=== PATIENT | male | born 1995 | race Two or more races ===

== ENCOUNTER 2020-01-11 21:28 | Emergency (ER) | payer OTHER ==
[~2020-01-11] VITALS: Ht 182.9 cm; Wt 88.5 kg
[2020-01-11 22:25] VITALS: BP 116/69
== END 2020-01-12 00:41 | disposition left against medical advice (07) ==
LOC: ER 21:28
DX: T14.8XXA Other injury of unspecified body region, initial encounter (principal); Z53.21 Procedure and treatment not carried out due to patient leaving prior to being seen by health care provider

== ENCOUNTER 2024-11-20 09:07 | Emergency (ER) | payer OTHER ==
[~2024-11-20] VITALS: Ht 180.3 cm; Wt 93.9 kg
--- NOTE | 2024-11-20 12:30 | ED.PDOC ---
Back pain HPI HPI Comments 29-year-old male presents to the ER with prior medical history of chronic back pain caused from a basketball injury 16 years ago and with a chief complaint of the back pain. Patient ports on having neck cramps, with lower back pain last night, the patient wound work when the occurrence did happen. Patient states that the pain originally started on the back but one night when he was sleeping the pain went up to his neck. 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 Patient does state he has numbness on the right scapula. Denies chills, fever, N/V/D, SOB, CP. No other associated symptoms, modifiers, recent injuries or sick contacts present at this time. Chief Complaint: Back Pain Time Seen by MD: 12:20 Reviewed Notes: Nurses Notes, Medications, Allergies Allergies: Coded Allergies: NO KNOWN ALLERGIES (Unverified , 01/11/20) Information Source: Patient Mode of Arrival: Ambulatory Timing: Came on: Gradually Duration: Since onset Location of Back pain: (B) Cervical, (B) Lumbar Severity: Moderate Prehospital treatment: None Quality: Aching Onset: Blunt Trauma (From a basketball incident 16 years ago plus his work(where he lifts heavy stuff)) History of: Chronic Back Pain Associated signs and symptoms: None Past Medical History Past Medical History (Other): Chronic back pain Surgical History: Denies all surgeries Family History Family History: Reviewed,noncontributory to illness, Unknown Social History Smoker: Non-Smoker Alcohol: Denies ETOH Use Drugs: Denies Drug Use Lives In: Home Constitutional: denies: chills, diaphoresis, fatigue, fever, malaise, sweats, weakness, others EENTM: denies: blurred vision, double vision, ear bleeding, ear discharge, ear drainage, ear pain, ear ringing, eye pain, eye redness, hearing loss, mouth pain, mouth swelling, nasal discharge, nose bleeding, nose congestion, nose pain, photophobia, tearing, throat pain, throat swelling, voice changes, others Respiratory: denies: cough, hemoptysis, orthopnea, SOB at rest, shortness of breath, SOB with excertion, stridor, wheezing, others Cardiovascular: denies: chest pain, dizzy spells, diaphoresis, Dyspnea on exertion, edema, irregular heart beat, left arm pain, lightheadedness, palpitations, PND, syncope, others Gastrointestinal: denies: abdomen distended, abdominal pain, blood streaked bowels, constipated, diarrhea, dysphagia, difficulty swallowing, hematemesis, melena, nausea, poor appetite, poor fluid intake, rectal bleeding, rectal pain, vomiting, others Genitourinary: denies: burning, dysuria, flank pain, frequency, hematuria, incontinence, penile discharge, penile sore, pain, testicle pain, testicle swelling, urgency, others Neurological: denies: dizziness, fainting, headache, left sided numbness, left sided weakness, numbness, paresthesia, pre-existing deficit, right sided numbness, right sided weakness, seizure, speech problems, tingling, tremors, weakness, others Musculoskeletal: reports: back pain, neck pain; denies: gout, joint pain, joint swelling, muscle pain, muscle stiffness, others Integumetry: denies: bruises, change in color, change in hair/nails, dryness, laceration, lesions, lumps, rash, wounds, others Allergic/Immunocompromised: denies: Difficulty Healing, Frequent Infections, Hives, Itching, others Hematologic/Lymphatic: denies: anemia, blood clots, easy bleeding, easy bruising, swollen glands, others Endocrine: denies: excessive hunger, excessive sweating, excessive thirst, excessive urination, flushing, intolerance to cold, intolerance to heat, unexplained weight gain, unexplained weight loss, others Psychiatric: denies: anxiety, bipolar disorder, depression, hopeless, panic disorder, schizophrenia, sleepless, suicidal, others All Other Systems: Reviewed and Negative Physical Exam General Appearance: Mild Distress, Normal HEENT: Normal ENT Inspection, PERRL/EOMI, Pharynx Normal, TMs Normal Neck: Limited Range of Motion, Normal, Normal Inspection, Tender Lateral Respiratory: Chest Non-Tender, Lungs Clear, No Accessory Muscle Use, No Respiratory Distress, Normal Breath Sounds Cardiovascular: No Edema, No JVD, No Murmur, No Gallop, Normal Peripheral Pulses, Regular Rate/Rhythm Breast Exam: Deferred Gastrointestinal: No Organomegaly, Non Tender, No Pulsatile Mass, Normal Bowel Sounds, Soft Genitalia: Deferred Pelvic: Deferred Rectal: Deferred Extremities: No calf tenderness, Normal capillary refill, Normal inspection, Normal range of motion, Non-tender, No pedal edema Musculoskeletal : Location: Bilateral Extremity Location: Back Apperance: Normal, Limited ROM, Tenderness: Moderate Neurologic: Alert, stock checkerer II-XII nml as Tested, No Motor Deficits, Normal Affect, Normal Mood, No Sensory Deficits Cerebellar Function: Normal Reflexes: Normal Skin: Dry, Normal Color, Warm Peripheral Pulses: 1+ carotid (R), 1+ carotid (L) Lymphatic: No Adenopathy Was a procedure done? Was a procedure done?: No Back Pain Differential Dx Differential Diagnosis: Musculoskeletal Pain X-Ray, Labs, Meds, VS Vital Signs Date Time Temp Pulse Resp B/P (MAP) Pulse Ox O2 Delivery O2 Flow Rate FiO2 11/20/24 11:33 98.0 63 16 107/59 (75) 97 98.0 11/20/24 11:33 63 16 97 Room Air 11/20/24 09:30 98.7 82 20 129/67 (87) 98 98.7 X-Ray, Labs, Meds, VS Comment Course in the emergency department eventful patient came in complaining of back pain from the neck down mostly on the neck side on the right side and back it is bilateral CT of the neck is normal patient had radiculopathy to the right shoulder arm The lumbar spine negative patient had an radiculopathy to the left leg Patient will be discharged home to follow up with his PCP Time of 1ST Reevaluation: 12:50 Reevaluation 1ST: Unchanged Patient Education/Counseling: Diagnosis, Treatment, Prognosis Family Education/Counseling: No Family Present Departure 1 Departure Time of Disposition: 13:10 Impression: Primary Impression: Lumbar radiculopathy Additional Impressions: Musculoskeletal pain Cervical radiculopathy at C5 Disposition: 01 HOME / SELF CARE / HOMELESS Condition: Fair Additional Instructions: Hot showers and follow up with your PCP e-Prescriptions Cyclobenzaprine Hcl (Cyclobenzaprine Hcl) 10 Mg Tab 10 MG PO TID for 10 Days, #30 TAB Prov: ELIDA VIZCAINO MD 11/20/24 Diclofenac Sodium (Diclofenac Sodium Dr) 50 Mg Tab 50 MG PO TID for 10 Days, #30 TAB Prov: ELIDA VIZCAINO MD 11/20/24 Discharged With: Self Critical Care Note Critical Care Time?: No Stability Stability form required: No Heart Score Heart Score: Heart Score Response (Comments) Value History N/A 0 EKG N/A 0 Age <45 0 Risk Factors No known risk factors 0 Troponin N/A 0 Total 0 I personally scribed for ELIDA VIZCAINO MD ([email or web address]) on 11/20/24 at 12:30. Electronically submitted by Mick Marquez ([email or web address]). ELIDA VIZCAINO MD November 20, 2024 12:30
--- NOTE | 2024-11-20 12:53 | DVH ---
CLINICAL HISTORY: Radiculopathy COMPARISON: None TECHNIQUE: Axial CT images of the cervical spine were obtained without IV contrast. Coronal and sagit evelina reformatted images were obtained. All CT scans at this medical facility are performed using dose modulation techniques as appropriate to a performed exam including the following: Automated exposure control was utilized; adjustment of the MA and/or KV according to patient size; and use of iterative reconstruction technique. CTDIvol = 17.94 mGy DLP = 428.53 mGy-cm FINDINGS: Bones: Straightening of the normal cervical lordosis. No significant spondylolisthesis. Vertebral bod y heights are maintained. Posterior elements are intact. No acute fracture. Paraspinal soft tissues: Prevertebral and paraspinal soft tissues are unremarkable. Other: No other significant findings. Cervical disc levels: C2-C3: No significant disc/facet abnormality. No significant spinal canal or neural foraminal stenosi s. C3-C4: No significant disc/facet abnormality. No significant spinal canal or neural foraminal stenosi s. C4-C5: No significant disc/facet abnormality. No significant spinal canal or neural foraminal stenosi s. C5-C6: No significant disc/facet abnormality. No significant spinal canal or neural foraminal stenosi s. C6-C7: No significant disc/facet abnormality. No significant spinal canal or neural foraminal stenosi s. C7-T1: No significant disc/facet abnormality. No significant spinal canal or neural foraminal stenosi s. IMPRESSION: 1. No evidence of acute fracture or spondylolisthesis. 2. Straightening of the normal cervical lordosis, may be positional or due to muscle spasm. 3. No significant spinal canal or neural foraminal stenosis visualized on CT. Correlate with clinical findings.
--- NOTE | 2024-11-20 12:59 | DVH ---
EXAM: CT LS SPINE WO CONTRAST HISTORY: Radiculopathy COMPARISON: None CTDIvol 19.93 mGy, DLP 659.81 mGy*cm. TECHNIQUE: Multiple axial CT images of the spine were obtained using bone algorithm. Axial and coron al reformatting was done. Bone and soft tissue windows were reviewed. FINDINGS: Alignment is normal. Vertebral body heights are maintained. No evidence of acute fracture. Intervertebral disc heights are maintained. No evidence of high-grade osseous spinal or neural foraminal stenosis. Paravertebral soft tissues are unremarkable. IMPRESSION: No evidence of acute abnormalities in the lumbar spine.
[2024-11-20] MEDS ORDERED: DICL50TA5 PO (13:15)
[2024-11-20] MEDS ORDERED: CYCL-839 PO (13:15)
[2024-11-20 14:33] VITALS: BP 113/66; PULSE 68; RESP 16; TEMP 98; O2SAT 98
== END 2024-11-20 14:40 | disposition home or self-care (01) ==
LOC: ER 09:07
DX: M54.16 Radiculopathy, lumbar region (principal); M54.12 Radiculopathy, cervical region; M79.10 Myalgia, unspecified site; G89.29 Other chronic pain
CPT/HCPCS: 72125; 72131

== ENCOUNTER 2025-03-14 15:10 | Emergency (ER) | payer OTHER ==
[~2025-03-14] VITALS: Ht 182.9 cm; Wt 89.9 kg
[~2025-03-14 15:10] MED LIST: CYCL-839 PO; DICL50TA5 PO
[2025-03-14 15:11] VITALS: BP 130/78; PULSE 88; RESP 18; TEMP 98.1; O2SAT 96
--- NOTE | 2025-03-14 15:48 | ED.PDOC ---
History of Present Illness HPI Comments 29-year-old male presents to the ER with a chief complaint of by lateral LE pain. Patient reports on skating and as he was doing tricks he misstepped and is now complaining of bilateral ankle pain that radiates up to the calf. Patient also wants to know why he has bruising on his left ankle for three weeks . Denies chills, fever, N/V/D, SOB, CP. No other associated symptoms, modifiers, recent injuries or sick contacts present at this time. Chief Complaint: Lower Extremity Time Seen by MD: 15:30 Reviewed Notes: Nurses Notes, Medications, Allergies Allergies: Coded Allergies: NO KNOWN ALLERGIES (Unverified , 01/11/20) Home Meds Active Scripts Cyclobenzaprine Hcl (Cyclobenzaprine Hcl) 10 Mg Tab, 10 MG PO TID for 10 Days, #30 TAB Prov:ELIDA VIZCAINO MD 11/20/24 Diclofenac Sodium (Diclofenac Sodium Dr) 50 Mg Tab, 50 MG PO TID for 10 Days, #30 TAB Prov:ELIDA VIZCAINO MD 11/20/24 Information Source: Patient Mode of Arrival: Ambulatory Severity: Moderate Timing: Hours Duration: Since onset, Hours Prehospital treatment: None Past Medical History PAST MEDICAL HISTORY: Denies Surgical History: Denies all surgeries Family History Family History: Reviewed,noncontributory to illness, Unknown Social History Smoker: Non-Smoker Alcohol: Denies ETOH Use Drugs: Denies Drug Use Lives In: Home Constitutional: denies: chills, diaphoresis, fatigue, fever, malaise, sweats, weakness, others EENTM: denies: blurred vision, double vision, ear bleeding, ear discharge, ear drainage, ear pain, ear ringing, eye pain, eye redness, hearing loss, mouth pain, mouth swelling, nasal discharge, nose bleeding, nose congestion, nose pain, photophobia, tearing, throat pain, throat swelling, voice changes, others Respiratory: denies: cough, hemoptysis, orthopnea, SOB at rest, shortness of breath, SOB with excertion, stridor, wheezing, others Cardiovascular: denies: chest pain, dizzy spells, diaphoresis, Dyspnea on exertion, edema, irregular heart beat, left arm pain, lightheadedness, palpitations, PND, syncope, others Gastrointestinal: denies: abdomen distended, abdominal pain, blood streaked bowels, constipated, diarrhea, dysphagia, difficulty swallowing, hematemesis, melena, nausea, poor appetite, poor fluid intake, rectal bleeding, rectal pain, vomiting, others Genitourinary: denies: burning, dysuria, flank pain, frequency, hematuria, incontinence, penile discharge, penile sore, pain, testicle pain, testicle swelling, urgency, others Neurological: denies: dizziness, fainting, headache, left sided numbness, left sided weakness, numbness, paresthesia, pre-existing deficit, right sided numbness, right sided weakness, seizure, speech problems, tingling, tremors, weakness, others Musculoskeletal: reports: others (Bilateral ankle pain); denies: back pain, gout, joint pain, joint swelling, muscle pain, muscle stiffness, neck pain Integumetry: denies: bruises, change in color, change in hair/nails, dryness, laceration, lesions, lumps, rash, wounds, others Allergic/Immunocompromised: denies: Difficulty Healing, Frequent Infections, Hives, Itching, others Hematologic/Lymphatic: denies: anemia, blood clots, easy bleeding, easy bruising, swollen glands, others Endocrine: denies: excessive hunger, excessive sweating, excessive thirst, excessive urination, flushing, intolerance to cold, intolerance to heat, unexplained weight gain, unexplained weight loss, others Psychiatric: denies: anxiety, bipolar disorder, depression, hopeless, panic disorder, schizophrenia, sleepless, suicidal, others All Other Systems: Reviewed and Negative Physical Exam General Appearance: No Apparent Distress, Normal HEENT: Normal ENT Inspection, Pharynx Normal, TMs Normal Neck: Full Range of Motion, Non-Tender, Normal, Normal Inspection Respiratory: Chest Non-Tender, Lungs Clear, No Accessory Muscle Use, No Respiratory Distress, Normal Breath Sounds Cardiovascular: No Edema, No JVD, No Murmur, No Gallop, Normal Peripheral Pulses, Regular Rate/Rhythm Breast Exam: Deferred Gastrointestinal: No Organomegaly, Non Tender, No Pulsatile Mass, Normal Bowel Sounds, Soft Genitalia: Deferred Pelvic: Deferred Rectal: Deferred Extremities: No calf tenderness, Normal capillary refill, Normal inspection, Normal range of motion, Non-tender, No pedal edema Musculoskeletal : Apperance: Normal Neurologic: Alert, billing machine operator II-XII nml as Tested, No Motor Deficits, Normal Affect, Normal Mood, No Sensory Deficits Cerebellar Function: Normal Reflexes: Normal Skin: Dry, Normal Color, Warm Lymphatic: No Adenopathy Was a procedure done? Was a procedure done?: No Differential Dx Considerations may include: Sprain, fracture X-Ray, Labs, Meds, VS Vital Signs Date Time Temp Pulse Resp B/P (MAP) Pulse Ox O2 Delivery O2 Flow Rate FiO2 03/14/25 15:11 98.1 88 18 130/78 96 98.1 [place] [address] Ph: [phone] DIAGNOSTIC IMAGING Diagnostic Imaging Report : [id number] Signed PATIENT: TATIANA PUENTE JRACCT: [id number] UNIT: [id number] : 1995 LOC: ER ROOM / BED: / AGE / SEX: 29 / M ADM STATUS: REG ER SERVICE 08 ORDERING PHYSICIAN: CHELA ANDERSON MD PROCEDURE(s): LANKL - L ANKLE 3 VIEW REASON: fall ORDER NUMBER(s): [id number], ACCESSION NUMBER(s): [id number] X-ray left ankle Technique: AP lateral and oblique views REASON FOR EXAM: fall INDICATION: fall FINDINGS: No fractures or dislocations. No erosions or periosteal reaction. Articular surfaces are smooth. IMPRESSION: 1. No acute bony pathology ATED BY: ANGEL GRIGGS MD DICTATED DATE/TIME: 03/14/251649 SIGNED BY: ANGEL GRIGGS MD SIGNED DATE/TIME: 03/14/251649 CC: [address] [address] Ph: [phone] DIAGNOSTIC IMAGING Diagnostic Imaging Report : [id number] Signed PATIENT: TATIANA PUENTE JRACCT: [id number] UNIT: [id number] : 1995 LOC: ER ROOM / BED: / AGE / SEX: 29 / M ADM STATUS: REG ER SERVICE ORDERING PHYSICIAN: CHELA ANDERSON MD PROCEDURE(s): RANKL - R ANKLE 3 VIEW REASON: fall ORDER NUMBER(s): [id number], ACCESSION NUMBER(s): [id number] X-ray right ankle Technique: AP lateral and oblique views REASON FOR EXAM: fall FINDINGS: Tiny bony density inferior to the distal fibula. Tibiotalar joint is intact. There is no joint effusion IMPRESSION: 1. Tiny chip fracture off the distal fibula age indeterminate ATED BY: ANGEL GRIGGS MD DICTATED DATE/TIME: 03/14/251649 SIGNED BY: ANGEL GRIGGS MD SIGNED DATE/TIME: 03/14/251649 CC: Time of 1ST Reevaluation: 16:00 Reevaluation 1ST: Unchanged Patient Education/Counseling: Diagnosis, Treatment, Prognosis Family Education/Counseling: No Family Present SEPSIS Sepsis Screen Date sepsis recognized/suspect: Mar 14, 2025 Time Sepsis recognized/suspect: 1510 Recent Procedure: No On Antibiotic Therapy: No Respiratory Rate >20: No Heart Rate >90: No Temp<36 C (96.8 F) or >38.3 C: No SBP <90 or MAP <65 mmHG: No New Acute Mental Status Change: No Is the patient on CPAP, BIPAP,: No Physician Orders L Ankle 3 View (03/14/25 16:09) R Ankle 3 View (03/14/25 16:09) Vital Signs Date Time Temp Pulse Resp B/P (MAP) Pulse Ox O2 Delivery O2 Flow Rate FiO2 03/14/25 15:11 98.1 88 18 130/78 96 98.1 Departure 1 Departure Time of Disposition: 17:30 (Patient with a ankle sprain and a small chip fracture of the patino.) Impression: Primary Impression: Fracture of distal fibula Qualified Codes: S82.831A - Other fracture of upper and lower end of right fibula, initial encounter for closed fracture Additional Impression: Left ankle sprain Qualified Codes: S93.402A - Sprain of unspecified ligament of left ankle, initial encounter Disposition: HOME / SELF CARE / HOMELESS Condition: Stable Referrals: JOSÉ MIGUEL AMBROSIO MD Additional Instructions: You sprained your ankle and have a small chip fracture of your distal fibula. You can take Tylenol and Motrin as needed for pain. You can danica wrap your ankle for comfort. You can use crutches as needed. You were referred to orthopedic surgery. Please call for an appointment next week to ensure you are healing well. If your symptoms worsen or you have any other concerns then please return to the ER. Discharged With: Self Critical Care Note Critical Care Time?: No Stability Stability form required: No I personally scribed for CHELA ANDERSON MD ([email or web address]) on 03/14/25 at 15:48. Electronically submitted by Mick Marquez ([email or web address]). I personally scribed for CHELA ANDERSON MD ([email or web address]) on 03/14/25 at 17:08. Electronically submitted by Coby Huffman ([email or web address]). CHELA ANDERSON MD Mar 14, 2025 15:48
--- NOTE | 2025-03-14 16:52 | DVH ---
X-ray right ankle Technique: AP lateral and oblique views REASON FOR EXAM: fall FINDINGS: Tiny bony density inferior to the distal fibula. Tibiotalar joint is intact. There is no j oint effusion IMPRESSION: 1. Tiny chip fracture off the distal fibula age indeterminate
--- NOTE | 2025-03-14 16:53 | DVH ---
X-ray left ankle Technique: AP lateral and oblique views REASON FOR EXAM: fall INDICATION: fall FINDINGS: No fractures or dislocations. No erosions or periosteal reaction. Articular surfaces are sm ooth. IMPRESSION: 1. No acute bony pathology
== END 2025-03-14 17:57 | disposition home or self-care (01) ==
LOC: ER 15:10
DX: S82.832A Other fracture of upper and lower end of left fibula, initial encounter for closed fracture (principal); S93.402A Sprain of unspecified ligament of left ankle, initial encounter; S90.02XA Contusion of left ankle, initial encounter; Z79.899 Other long term (current) drug therapy; X58.XXXA Exposure to other specified factors, initial encounter; Y93.89 Activity, other specified; Y92.89 Other specified places as the place of occurrence of the external cause; Y99.8 Other external cause status
CPT/HCPCS: 73610